=== PATIENT | female | born 2005 | race Two or more races ===

== ENCOUNTER 2024-05-24 18:13 | Inpatient (IN) ==
[2024-05-24 20:21] LABS: Urine Appearance Turbid; Urine Bilirubin Negative (Negative); Urine Blood Negative (Negative); Urine Color Yellow; Urine Glucose Negative (Negative); Urine Ketones 1+ (Negative); Urine Nitrite Negative (Negative); Urine Protein 3+ (>=300 mg/dL) (Negative); Urine Specific Gravity 1.033 (1.002-1.030); Urine Urobilinogen 1+ (Negative)
[2024-05-24 20:29] LABS: Urine Benzodiazepine Screen None Detected (None Detect); Urine Cannabinoids Screen None Detected (None Detect); Urine Opiates Screen None Detected (None Detect)
[2024-05-24 20:42] LABS: Urine Bacteria Absent /HPF (Absent); Urine Red Blood Cell 1+(3-5/hpf) /HPF (0-Trace); Urine Squamous Epithelial Cell Present /HPF (Absent); Urine White Blood Cell Trace(0-5/hpf) /HPF (0-Trace)
[2024-05-24 21:59] LABS: ABS Eosinophils 0.1 10^3/uL (0.0-0.5); ABS Lymphocytes 2.1 10^3/uL (1.0-4.8); ABS Monocytes 0.7 10^3/uL (0.0-0.9); ABS Neutrophils 4.8 10^3/uL (1.5-7.6); ABS Nucleated RBC 0.01 10^3/ul; Anisocytosis 1+; Eosinophil % 0.9 %; Hematocrit 40.9 % (35-45); Hemoglobin 12.7 g/dL (11.5-14.3); Hypochromasia 2+; Lymphocyte % 27.5 %; Mean Corpuscular Hemoglobin 23.4 pg (27-33); Mean Corpuscular Hgb Conc 30.9 g/dL (31-36); Mean Corpuscular Volume 75.7 fL (80-97); Mean Platelet Volume 7.1 fL (7.5-11.2); Microcytosis 1+; Nucleated Red Blood Cells % 0.1 %/100WBC (0.0-0.8); Platelet Count 26 10^3/uL (150-450); Red Blood Count 5.41 10^6/uL (3.63-4.92); Red Cell Distribution Width 14.4 % (12-17); Tear Drop Cells 1+; White Blood Count 7.6 10^3/uL (3.8-11.8)
[2024-05-24 22:32] LABS: HCG Pregnancy < 0.60 mIU/mL
[2024-05-24 22:46] LABS: ALT 11 U/L (7-52); Acetaminophen < 15 mcg/mL; Albumin 4.8 g/dL (3.2-5.2); Albumin/Globulin Ratio 1.9 (1-3); Alcohol, S < 13 mg/dL (<13); Alkaline Phosphatase 62 U/L (35-149); Anion Gap 14 mmol/L (2-16); Blood Urea Nitrogen 11 mg/dL (6-24); CO2 Carbon Dioxide 18 mmol/L (22-32); Chloride 105 mmol/L (101-111); Globulin 2.5 g/dL (2-4); Glucose 91 mg/dL (70-100); Salicylate < 2.50 mg/dL (<30); Sodium 137 mmol/L (135-145); Total Bilirubin 0.7 mg/dL (0.2-1.0); Total Protein 7.3 g/dL (6.4-8.9)
[2024-05-24 23:08] LABS: Creatinine, Serum 0.71 mg/dL (0.51-0.95); TSH Ultra Thyroid Stim Horm 1.34 mcIU/mL (0.34-5.60)
[2024-05-24 23:37] LABS: Hepatitis B Surface Antigen Nonreactive (Nonreactive)
[2024-05-24 23:54] LABS: Hepatitis B Surface Ab Not Immune (Immune); Hepatitis C Antibody Negative (Negative)
[2024-05-25 08:43] LABS: Activated Partial Thrombo Time 28.1 seconds (26.0-38.0); INR 1.04 (0.85-1.14)
[2024-05-25 09:13] LABS: Potassium Redraw 4.2 mmol/L (3.5-5.0)
[2024-05-25 09:40] LABS: Folate 17.14 ng/mL (5.90-24.80)
[2024-05-25 10:25] LABS: Hematocrit 38.6 % (35-45); Hemoglobin 12.5 g/dL (11.5-14.3); Mean Corpuscular Hemoglobin 23.4 pg (27-33); Mean Corpuscular Hgb Conc 32.5 g/dL (31-36); Mean Corpuscular Volume 72.1 fL (80-97); Mean Platelet Volume 8.5 fL (7.5-11.2); Platelet Count 324 10^3/uL (150-450); Red Blood Count 5.35 10^6/uL (3.63-4.92); Red Cell Distribution Width 14.6 % (12-17); White Blood Count 9.3 10^3/uL (3.8-11.8)
[2024-05-25 10:41] LABS: HIV 4th Generation Nonreactive (Nonreactive)
[2024-05-25 10:48] LABS: Ferritin 39.9 ng/mL (11-307)
[2024-05-25 10:52] LABS: ABS Basophils 0.1 10^3/uL (0.0-0.1); ABS Eosinophils 0.2 10^3/uL (0.0-0.5); ABS Lymphocytes 2.4 10^3/uL (1.0-4.8); ABS Neutrophils 5.6 10^3/uL (1.5-7.6); Eosinophil % 2.5 %; Lymphocyte % 25.6 %
[2024-05-25 14:52] LABS: Chlamydia trachomatis NAA Negative (Negative); Neisseria gonorrhoeae (GC) NAA Negative (Negative)
[2024-05-27 10:15] LABS: HDL Cholesterol 44.4 mg/dL
[2024-05-28 00:10] LABS: Anaplasma phagocytophilum Negative (Negative); B. miyamotoi PCR, B Negative (Negative); Babesia divergens/MO-1 Negative (Negative); Babesia ducani Negative (Negative); Ehrlichia chaffeensis Negative (Negative); Ehrlichia ewingii/canis Negative (Negative); Ehrlichia muris eauclairensis Negative (Negative)
[2024-06-08 08:33] VITALS: BP 115/83
== END 2024-06-09 11:30 | disposition home or self-care (01) | DRG 750 ==
LOC: ED 18:13 → EDHOLD 05-25 09:47 → BSU 05-25 11:37
PROVIDERS: ADMIT Psychiatry & Neurology Psychiatry; ATTEND Student in an Organized Health Care Education/Training Program